=== PATIENT | female | born 1950 | race Caucasian/White ===

== ENCOUNTER → 2017-02-08 | Outpatient (CLI) | payer MEDICARE, OTHER ==
[~2017-02-08] MED LIST: PERCOCET 5/31 TABLET PO; REQUIP PO; REQUIP0.5 MG PO; TOPAMAX100 MG PO; TRAMADOL HCL200 MG PO
== END | disposition home or self-care (01) ==
LOC: CDC 13:09
DX: Z01.810 Encounter for preprocedural cardiovascular examination (principal); R94.31 Abnormal electrocardiogram [ECG] [EKG]
CPT/HCPCS: 93000

== ENCOUNTER 2017-09-11 21:47 | Inpatient (IN) | payer OTHER ==
[~2017-09-11] VITALS: Ht 162.6 cm; Wt 85.6 kg
[~2017-09-11 21:47] MED LIST changes: +ASPIRIN325 MG PO; +CYMBALTA60 MG PO; +DITROPAN XL5 MG PO; +DURAGESIC75 MCG TD; +ESTER-C 1,0001 EACH PO; +FOLIC ACID1 MG PO; +GLUCOSAMINE H1500 MG PO; +MOBIC15 MG PO; +OMEGA PO; +POTASSIUM GLUCONATE PO; +PRAVACHOL40 MG PO; +PROTONIX40 MG PO; +REQUIP2 MG PO; +SELENIUM200 MCG PO; +TOLTERODINE TART4 MG PO; +VAGIFEM10 MCG VG; +VITAMIN B122500 MCG PO; +VITAMIN D2000 UNI1 PO; +VITAMIN E1000 UNI1 PO
[2017-09-12 06:03] VITALS: BP 144/87
[2017-09-12 12:42] VITALS: BP 140/66
[2017-09-12 20:33] VITALS: BP 131/68
[2017-09-13 00:45] VITALS: BP 143/72
[2017-09-13 04:08] VITALS: BP 142/74
[2017-09-13 07:25] LABS: BASOPHIL (%) 0.2 % (0-1); EOSINOPHIL (%) 0.2 % (0-5); HEMATOCRIT 32.9 % (36.0-46.0); IMMATURE GRANULOCYTE (%) 0.3 % (0.0-0.7); LYMPHOCYTE (%) 21.6 % (15-42); LYMPHOCYTE COUNT 2.1 K/uL (1.0-2.8); MCH 30.6 PG (29.0-34.0); MCHC 31.9 G/DL (30.0-36.0); MCV 95.9 FL (83-99); MONOCYTE (%) 6.6 % (3-12); MONOCYTE COUNT 0.6 K/uL (0-0.8); NEUTROPHIL (%) 71.1 % (45-76); NEUTROPHIL COUNT 6.8 K/uL (1.8-6.4); PLATELET COUNT 132 K/uL (156-360); RBC DIS.WIDTH-CV 12.5 % (11.8-14.6); RBC DIS.WIDTH-SD 43.4 % (39-53); RED BLOOD COUNT 3.43 M/uL (3.80-5.20); WHITE BLOOD COUNT 9.6 K/uL (4.1-10.2)
[2017-09-13 07:40] LABS: HEMOGLOBIN 10.5 G/DL (11.9-15.5)
[2017-09-13 07:45] LABS: CHLORIDE 110 MEQ/L (99-109); CREATININE 0.6 MG/DL (0.6-1.3); GFR ESTIMATE (CALCULATED) > 59 mL/min/; GLUCOSE 157 mg/dL (70-99); POTASSIUM 3.5 MEQ/L (3.7-5.4); SODIUM 142 MEQ/L (136-147); UREA NITROGEN (BUN) 10 mg/dL (9-23)
[2017-09-13 08:09] VITALS: BP 140/65
[2017-09-13 11:49] VITALS: BP 143/72
[2017-09-13 15:52] VITALS: BP 142/64
[2017-09-13 19:47] VITALS: BP 141/79
[2017-09-14 00:17] VITALS: BP 143/81
[2017-09-14 04:13] VITALS: BP 142/68
[2017-09-14 06:18] LABS: BASOPHIL (%) 0.3 % (0-1); EOSINOPHIL (%) 0.6 % (0-5); EOSINOPHIL COUNT 0.1 K/uL (0-0.3); HEMATOCRIT 35.7 % (36.0-46.0); HEMOGLOBIN 11.5 G/DL (11.9-15.5); IMMATURE GRANULOCYTE (%) 0.5 % (0.0-0.7); LYMPHOCYTE (%) 18.4 % (15-42); MCH 30.3 PG (29.0-34.0); MCHC 32.2 G/DL (30.0-36.0); MCV 93.9 FL (83-99); MONOCYTE (%) 6.4 % (3-12); MONOCYTE COUNT 0.7 K/uL (0-0.8); NEUTROPHIL (%) 73.8 % (45-76); PLATELET COUNT 141 K/uL (156-360); RBC DIS.WIDTH-CV 12.3 % (11.8-14.6); RBC DIS.WIDTH-SD 42.6 % (39-53); WHITE BLOOD COUNT 10.9 K/uL (4.1-10.2)
[2017-09-14 07:37] LABS: CHLORIDE 107 MEQ/L (99-109); CREATININE 0.6 MG/DL (0.6-1.3); GFR ESTIMATE (CALCULATED) > 59 mL/min/; GLUCOSE 130 mg/dL (70-99); SODIUM 141 MEQ/L (136-147); UREA NITROGEN (BUN) 9 mg/dL (9-23)
[2017-09-14 07:38] LABS: POTASSIUM 5.1 MEQ/L (3.7-5.4)
[2017-09-14 08:05] VITALS: BP 142/64
[2017-09-14 11:07] VITALS: BP 130/66
[2017-09-14 15:40] VITALS: BP 140/68
== END 2017-09-14 18:30 | disposition home or self-care (01) | DRG 743 ==
LOC: ENRESERV 21:47 → 2SOUTH 09-12 04:15 → 2EASTP 09-12 05:33 → 2SOUTH 09-12 05:33 → ENRESERV 09-12 11:10 → 2EASTP 09-12 12:23 → 2SOUTH 09-12 15:59 → 2EASTP 09-14 18:30
PROVIDERS: Obstetrics & Gynecology Gynecology
DX: N81.4 Uterovaginal prolapse, unspecified (principal); E78.5 Hyperlipidemia, unspecified; G89.29 Other chronic pain; K21.9 Gastro-esophageal reflux disease without esophagitis; F32.9 Major depressive disorder, single episode, unspecified; Z79.82 Long term (current) use of aspirin; Z86.711 Personal history of pulmonary embolism; E66.9 Obesity, unspecified; Z68.32 Body mass index [BMI] 32.0-32.9, adult
CPT/HCPCS: 80048; 85025; 87086; 88307; 94799; C1781; J0690; J1100; J1170; J1650; J1885; J2001; J2405; J2710; J2795; J3010; J3475; J7120; J7643; Q0175